=== PATIENT | female | born 1955 | race Two or more races ===

== ENCOUNTER → 2017-11-30 | Outpatient (CLI) | END | disposition home or self-care (01) ==

== ENCOUNTER 2017-12-10 07:30 | Observation (INO) | END 2017-12-12 15:00 | disposition home health service (06) ==

== ENCOUNTER → 2017-12-21 | Outpatient (CLI) | END | disposition home or self-care (01) ==

== ENCOUNTER → 2018-01-18 | Outpatient (CLI) | END | disposition home or self-care (01) ==

== ENCOUNTER 2018-01-25 22:07 | Emergency (ER) | END 2018-01-26 01:30 | disposition home or self-care (01) ==

== ENCOUNTER 2018-02-10 20:43 | Emergency (ER) | END 2018-02-11 04:10 | disposition home or self-care (01) ==

== ENCOUNTER 2018-02-12 10:56 | Emergency (ER) | END 2018-02-12 12:49 | disposition home or self-care (01) ==

== ENCOUNTER 2018-02-19 10:33 | Emergency (ER) | END 2018-02-19 11:36 | disposition home or self-care (01) ==

== ENCOUNTER → 2018-02-23 | Outpatient (CLI) | END | disposition home or self-care (01) ==

== ENCOUNTER → 2018-03-01 | Outpatient (CLI) | END | disposition home or self-care (01) ==

== ENCOUNTER → 2018-07-05 | Outpatient (CLI) | payer MEDICARE, OTHER ==
[~2018-07-05] MED LIST: ACET500C5 PO; CEPH-443 PO; HYDR-3980 PO; PHEN177S43 MT
--- NOTE | 2018-07-05 12:50 | PN ---
Date/Time of Note Date/Time of Note DATE: 07/05/18 TIME: 12:49 Assessment/Plan VTE Prophylaxis Pharmacological prophylaxis: NA/contraindicated Pharm contraindication: low risk/ambulating Assessment/Plan Assessment/Plan 62-year-old female with right knee replacement that is progressing well. She does have some residual stiffness and would benefit from more physical therapy. She is advised to continue an aggressive a home exercise program as well. She will follow-up in 3-4 months. Subjective 24 Hr Interval Summary Free Text/Dictation 62-year-old female who is about 6 months status post right knee replacement. The patient is progressing well. She does have some residual stiffness and pain. There is no history of fever or chills. Patient is doing her routine activities without discomfort Exam/Review of Systems Vital Signs Vitals Patient is afebrile Exam Examination shows a pleasant female. The right knee shows a healed incision. Range of motion is 0-100 degrees. There is no neurovascular deficit. Mild atrophy of the quadriceps is noted. X-rays show a right total knee replacement in good position with no evidence of loosening KIMANI KEITA Jul 05, 2018 12:50
--- NOTE | 2018-07-05 14:49 | RADRPT ---
PROCEDURE: RIGHT knee x-ray CLINICAL INDICATION: PAIN TECHNIQUE: AP, and lateral views of the knee were obtained. COMPARISON: KNEE 02/11/2018 FINDINGS: There is normal mineralization. No acute fracture or dislocation is seen. The patient is status po st right knee replacement with appropriate positioning of the prosthesis. There are postsurgical farr ges in the right knee. There is no joint effusion. IMPRESSION: Status post total right knee arthroplasty with intact hardware and no evidence of loosening. No acute fracture or dislocation. RPTAT: QQ Physician Tej Date Time Electronically viewed and signed by Physician Tej on 07/05/2018 14:49 rV/
== END | disposition home or self-care (01) ==
LOC: HKI 09:34
PROVIDERS: ATTEND Orthopaedic Surgery
DX: M25.561 Pain in right knee (principal); Z96.651 Presence of right artificial knee joint
CPT/HCPCS: 73560; G0463